=== PATIENT | male | born 1960 | race Caucasian/White ===

== ENCOUNTER 2017-08-10 11:51 | Emergency (ER) | payer BC ==
[~2017-08-10] VITALS: Ht 185.4 cm; Wt 92.0 kg
[2017-08-10] MEDS ORDERED: HYDR-569 PO (13:42)
[2017-08-10 14:01] VITALS: BP 121/89
== END 2017-08-10 14:02 | disposition home or self-care (01) ==
LOC: ER 11:52
DX: G89.29 Other chronic pain (principal); M06.9 Rheumatoid arthritis, unspecified; G62.9 Polyneuropathy, unspecified
CPT/HCPCS: 99283